=== PATIENT | female | born 1960 | race Caucasian/White ===

== ENCOUNTER 2018-09-24 05:52 | Emergency (ER) | payer OTHER ==
[~2018-09-24] VITALS: Ht 162.6 cm; Wt 76.2 kg
[~2018-09-24 05:52] MED LIST: AUGMENTIN 875-1 EACH PO; CARAFATE1 GM/10 ML PO; DOXAZOSIN MESYLA4 MG PO; FLEXERIL10 MG PO; HYDROCODONE-IBU1 TAB PO; METHOCARBAMOL750 MG PO; MIRALAX17 GM PO; NAPROSYN500 MG PO; NEXIUM40 MG PO; NORCO 10-325 T1 EACH PO; NORCO 10MG-325MG1 EA PO; SAVELLA50 MG PO; SENNA S TABLET1 EACH PO; SINGULAIR10 MG PO; SULFAMETHOXAZO1 EAC1 PO; ZOLPIDEM TARTRAT5 MG PO; ZYRTEC10 MG PO
--- OUTSIDE RECORDS SUMMARY | 2018-09-24 05:56 | XMS REPORT ---
Author Author [facility] Address Unknown Phone Unavailable Care Team Providers Care Flare Worker Name Role Phone Unavailable Unavailable Payers Payer Name Policy Type Policy Number Effective Date Expiration Date Problems This patient has no known problems. Allergies, Adverse Reactions, Alerts Allergy Name Allergy Type Status Severity Reaction(s) Onset Date Inactive Date Treating Clinician Comments morphine DA Active DC 2018-06-30 00:00:00 meperidine DA Active DC 2018-06-30 00:00:00 diphenhydramine DA Active DC 2018-06-30 00:00:00 No Known Allergies DA Active U 2015-10-17 00:00:00 Medications This patient has no known medications.
--- OUTSIDE RECORDS SUMMARY | 2018-09-24 05:56 | XMS REPORT | Clinical Summary ---
Author Author [employer] Organization [employer] Address Unknown Phone Unavailable Care Team Providers Care Home Demonstration Agent Name Role Phone Magno Yuan MD PCP Allergies Comments Active Allergy Reactions Severity Noted Date Morphine Medications End Date Status Medication Sig Dispensed Refills Start Date Active HYDROcodone-acetaminophen Take 1 tablet 0 (NORCO) 10-325 mg per by mouth 2 tablet (two) times a day. Active oxybutynin (DITROPAN) 5 Take 5 mg by 0 MG tablet mouth 2 (two) times a day. Active doxazosin (CARDURA) 8 MG Take 8 mg by 0 tablet mouth nightly. Active gabapentin (NEURONTIN) Take 600 mg 0 600 mg tablet by mouth 2 (two) times a day. Active triamterene-hydrochloroth Take 1 tablet 0 iazid (MAXZIDE) 75-50 mg by mouth per tablet daily. Active citalopram (CeleXA) 40 MG Take 40 mg by 0 tablet mouth daily. Active multivitamin (THERAGRAN) Take 1 tablet 0 tablet by mouth daily. Active MILK THISTLE ORAL Take 1 tablet 0 by mouth daily. Active CALCIUM ORAL Take 1 tablet 0 by mouth daily. Active docosahexanoic acid/epa Take 1 0 (FISH OIL ORAL) capsule by mouth daily. Active LECITHIN ORAL Take 1 tablet 0 by mouth daily. Active ferrous sulfate (IRON Take 1 tablet 0 ORAL) by mouth daily as needed (whenever she feels weak). Active docusate sodium (STOOL Take 1 0 SOFTENER ORAL) capsule by mouth daily as needed (for constipation) . Active esomeprazole (NexIUM) 20 Take 20 mg by 0 MG capsule mouth daily before breakfast. Active phentermine HCl Take 1 tablet 0 (PHENTERMINE ORAL) by mouth every morning. Active naproxen (NAPROSYN) 500 Take 500 mg 0 MG tablet by mouth 2 (two) times a day with meals. 11/28/2017 Discontinued methocarbamol (ROBAXIN) Take 750 mg 0 750 MG tablet by mouth 2 (two) times a day. 12/06/2017 Discontinued naproxen (NAPROSYN) 500 Take 500 mg 0 MG tablet by mouth 2 (two) times a day with meals. 12/06/2017 Discontinued tiZANidine (ZANAFLEX) 4 Take 4 mg by 0 MG tablet mouth 2 (two) times a day. 12/12/2017 Discontinued UNABLE TO FIND Take 1 0 capsule by mouth daily. Med Name: Bromelain Supplement 12/03/2017 methylPREDNISolone follow 21 tablet 0 (MEDROL DOSEPAK) 4 mg package 8 tablet directions 12/12/2017 Discontinued famotidine (PEPCID) 40 MG Take 1 tablet 20 tablet 0 tablet (40 mg total) 8 by mouth nightly as needed for heartburn for up to 30 days. 12/12/2017 Discontinued acetaminophen-codeine Take 1-2 60 tablet 0 (TYLENOL WITH CODEINE #3) tablets by 8 300-30 mg per tablet mouth every 4 (four) hours as needed (pain) for up to 30 days. 01/05/2018 cyclobenzaprine Take 1 tablet 40 tablet 0 (FLEXERIL) 5 mg tablet (5 mg total) 8 by mouth every 8 (eight) hours as needed for muscle spasms for up to 30 days. 05/26/2018 acetaminophen (TYLENOL Take 2 20 tablet 0 EXTRA STRENGTH) 500 MG tablets 8 tablet (1,000 mg total) by mouth every 6 (six) hours as needed for moderate pain for up to 10 days. 06/15/2018 albuterol (PROAIR Inhale 2 1 Inhaler 0 HFA,PROVENTIL puffs every 4 8 HFA,VENTOLIN HFA) 90 (four) hours mcg/actuation inhaler as needed for wheezing for up to 30 days. 05/21/2018 codeine-guaifenesin Take 5 mL by 118 mL 0 (GUAIFENESIN AC) 10-100 mouth 3 8 mg/5 mL liquid (three) times a day as needed for cough for up to 5 days. 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 11/19/2017 Anxiety 11/18/2017 Encounters Care Team Description Date Type Specialty Kayleen Smith MA 09/07/2018 Telephone Cardiothoracic Surgery Neal Joe MD Viral URI with cough (Primary Dx) 05/16/2018 Emergency Emergency Medicine Mal Mendez MD Muscle spasm (Primary Dx) 12/12/2017 Emergency Emergency Medicine Carlotta Pascual NP 12/05/2017 Anesthesia General Surgery Event Nii Pace MD ANTERIOR CERVICAL DISCECTOMY AND FUSION W/ ALLOGRAFT, AUTOGRAFT C3-C4 12/05/2017 Surgery General Surgery Nii Pace MD Cervical spinal stenosis; Acute cervical radiculopathy; Herniation of intervertebral disc of high cervical region 12/05/2017 [facility] Neurosurgery - Encounter 12/06/2017 Nii Pace MD Preop examination (Primary Dx) 12/01/2017 Pre-Admit Pre-Admission Testing Testing Appointment Roseann Anderson MD Dizziness (Primary Dx); Radiculopathy, unspecified spinal region 11/28/2017 Emergency Emergency Medicine Dada Hernandez MD Abbasi, Nadia, MD Patel, Amitkumar Natvarlal, MD Anxiety (Primary Dx); Fall, initial encounter; Herniated disc, cervical; Facial paresthesia 11/18/2017 [facility] General Internal Medicine - Encounter 11/19/2017 after 09/23/2017 Social History Date Tobacco Use Types Packs/Day Years Used Current Every Day Smoker Cigarettes 0.5 15 Smokeless Tobacco: Never Used Comments: last cigarette 12/05/17 Alcohol Use Drinks/Week oz/Week Comments Yes social Sex Assigned at Date Recorded Not on file Industry Job Start Date Occupation Not on file Not on file Not on file Travel End Travel History Travel Start No recent travel history available. Last Filed Vital Signs Time Taken Vital Sign Reading 05/16/2018 7:07 AM [facility] Blood Pressure 124/61 05/16/2018 7:07 AM [facility] Pulse 110 05/16/2018 2:20 AM [facility] Temperature 37.4 C (99.3 F) 05/16/2018 7:07 AM [facility] Respiratory Rate 22 05/16/2018 7:07 AM [facility] Oxygen Saturation 94% - Inhaled Oxygen - Concentration 05/16/2018 2:20 AM [facility] Weight 83 kg (183 lb) 12/12/2017 8:06 AM CDT Height 162.6 cm (5' 4") 05/16/2018 2:20 AM [facility] Body Mass Index 31.41 Plan of Treatment Health Maintenance Due Date Last Done Comments CERVICAL CANCER SCREENING 10/08/1980 BREAST CANCER SCREENING 10/08/2009 COLON CANCER SCREENING 10/08/2009 SHINGLES VACCINES (#1) 10/08/2009 INFLUENZA VACCINE 01/14/2019 Implants Device Identifier Shelf Expiration Date Model / Serial / Lot Implanted Type Area Manufactur er 06/14/2022 [id number] / [id number] / [id number] Bone Matriz Osteocel Pro Small - Human Anterior: Spine NUVASIVE [id number] - [id number] Tissue Cervical Implanted: Qty: 1 on 12/05/2017 by Implants Nii Pace MD [id number] / / Distraction Pin- 12mm - [id number] IPM Anterior: Spine NUVASIVE Implanted: Qty: 2 on 12/05/2017 by IMPLANT Cervical SPINE Nii Pace MD DEVICES [id number] / / Contour Spacer Small 5mm - IPM N/A: N/A NUVASIVE [id number] IMPLANT SPINE Implanted: Qty: 1 on 12/05/2017 by DEVICES Nii Pace MD [id number] / / Screw Spinal Fxd Slf-Tap 4x13mm Spinal N/A: N/A NUVASIVE [employer] - [id number] Implants Implanted: Qty: 2 on 12/05/2017 by Nii Pace MD [id number] / / Screw Spinal Ede Slf-Tap 4x13mm Spinal N/A: N/A NUVASIVE [employer] - [id number] Implants Implanted: Qty: 2 on 12/05/2017 by Nii Pace MD Procedures Comments Procedure Name Priority Date/Time Associated Diagnosis RESPIRATORY PATHOGEN Routine 05/16/2018 PANEL 5:11 AM [facility]ER INFLUENZA ANTIGEN TEST, Routine 05/16/2018 REFLEX NEGATIVE TO RPP 5:11 AM [facility]ER XR CHEST 2 VW STAT 05/16/2018 4:10 AM [facility] XR CERVICAL SPINE NEUTRAL STAT 12/12/2017 FLEXION AND EXTENSION 10:22 AM CDT ZZESTIMATED GFR STAT 12/12/2017 8:30 AM CDT BASIC METABOLIC PANEL STAT 12/12/2017 8:30 AM CDT HC COMPLETE BLD COUNT STAT 12/12/2017 W/AUTO DIFF 8:30 AM CDT SURGICAL PATHOLOGY Routine 12/05/2017 REQUEST 11:28 AM CDT OR FL < 1 HOUR Routine 12/05/2017 9:03 AM CDT NV AN ELECTIVE Routine 12/05/2017 ENDOTRACHEAL AIRWAY 8:20 AM CDT DISCECTOMY, CERVICAL, 12/05/2017 Cervical spinal stenosis WITH FUSION, ANTERIOR 7:15 AM CDT Acute cervical APPROACH radiculopathy Herniation of intervertebral disc of high cervical region Case Notes SUPINE POSITION, REGULAR BED-REVERS ED, C-ARM, DOUGHNUT HEADREST, HELIX - R ANTERIOR PLATE, PEEK SMALL CONTOURED, OSTEOCEL, POSSIBLE EXTENDED STAY Special Needs SUPINE POSITION, REGULAR BED-REVERS ED, C-ARM, DOUGHNUT HEADREST, HELIX - R ANTERIOR PLATE, PEEK SMALL CONTOURED, OSTEOCEL, POSSIBLE EXTENDED STAY ZZESTIMATED GFR Routine 12/01/2017 12:22 PM CDT BASIC METABOLIC PANEL Routine 12/01/2017 Preop examination 12:22 PM CDT CBC HEMOGRAM Routine 12/01/2017 Preop examination 12:22 PM CDT HEPATIC FUNCTION PANEL Routine 12/01/2017 Preop examination 12:22 PM CDT URINALYSIS SCREEN AND STAT 11/28/2017 MICROSCOPY, WITH REFLEX 10:38 AM CDT TO CULTURE GRAM STAIN STAT 11/28/2017 10:38 AM CDT URINE CULTURE STAT 11/28/2017 10:[address] HEAD WO CONTRAST STAT 11/28/2017 9:11 AM CDT LACTIC ACID LEVEL STAT 11/28/2017 8:30 AM CDT ZZESTIMATED GFR STAT 11/28/2017 8:30 AM CDT B NATRIURETIC PEPTIDE STAT 11/28/2017 8:30 AM CDT CREATINE KINASE, TOTAL STAT 11/28/2017 (CPK) 8:30 AM CDT TROPONIN STAT 11/28/2017 8:30 AM CDT LIPASE LEVEL STAT 11/28/2017 8:30 AM CDT AMYLASE LEVEL STAT 11/28/2017 8:30 AM CDT COMPREHENSIVE METABOLIC STAT 11/28/2017 PANEL 8:30 AM CDT PARTIAL THROMBOPLASTIN STAT 11/28/2017 TIME (PTT) 8:30 AM CDT PROTHROMBIN TIME WITH INR STAT 11/28/2017 8:30 AM CDT HC COMPLETE BLD COUNT STAT 11/28/2017 W/AUTO DIFF 8:30 AM CDT ECG 12-LEAD STAT 11/28/2017 7:42 AM CDT CBC WITH PLATELET AND Routine 11/19/2017 DIFFERENTIAL 10:02 AM CDT MRI LUMBAR SPINE WO STAT 11/19/2017 CONTRAST 8:10 AM CDT MRI THORACIC SPINE WO STAT 11/19/2017 CONTRAST 7:50 AM CDT MRI CERVICAL SPINE WO STAT 11/19/2017 CONTRAST 7:30 AM CDT ZZESTIMATED GFR Routine 11/19/2017 4:14 AM CDT COMPREHENSIVE METABOLIC Routine 11/19/2017 PANEL 4:14 AM CDT PARTIAL THROMBOPLASTIN STAT 11/19/2017 TIME (PTT) 1:30 AM CDT PROTHROMBIN TIME WITH INR STAT 11/19/2017 1:30 AM CDT STREP SCREEN CULTURE Routine 11/19/2017 1:30 AM CDT RESPIRATORY PATHOGEN Routine 11/19/2017 PANEL 1:30 AM CDT GROUP A STREP, RAPID Routine 11/19/2017 ANTIGEN 1:[address] HEAD WO CONTRAST STAT 11/19/2017 12:[address] CERVICAL SPINE WO STAT 11/19/2017 CONTRAST 12:13 AM CDT XR CHEST 1 VW PORTABLE STAT 11/18/2017 7:46 PM CDT ZZESTIMATED GFR STAT 11/18/2017 6:48 PM CDT COMPREHENSIVE METABOLIC STAT 11/18/2017 PANEL 6:48 PM CDT HC COMPLETE BLD COUNT STAT 11/18/2017 W/AUTO DIFF 6:45 PM CDT after 09/23/2017 Results * Respiratory pathogen panel (05/16/2018 5:11 AM [facility]) Only the most recent of 2 results within the time period is included. Respiratory pathogen Positive for [facility] panel Rhinovirus/Enterovirus [facility] Negative for all other pathogens tested: Negative for Adenovirus Negative for Coronavirus HKU1 Negative for Coronavirus NL63 Negative for Coronavirus 229E Negative for Coronavirus OC43 Negative for Human Metapneumovirus Negative for Influenza A Negative for Influenza A/H1 Negative for Influenza A/H3 Negative for Influenza A/H1-2009 Negative for Influenza B Negative for Parainfluenza Virus 1 Negative for Parainfluenza Virus 2 Negative for Parainfluenza Virus 3 Negative for Parainfluenza Virus 4 Negative for Respiratory Syncytial Virus Negative for Bordetella pertussis Negative for Chlamydophila pneumoniae Negative for Mycoplasma pneumoniae This real-time PCR assay detects the presence of nucleic acids (RNA or DNA) for the respiratory pathogens listed. A result of "Not-detected" does not exclude the possibility of the presence of one or more pathogens at concentrations less than the detectable limits of the assa (A) Comment: Specimen Information Specimen Source: Nares Specimen Site: Left Specimen Nares - Left Performing Organization Address [facility] Phone Number [facility] DEPARTMENT OF [address] [place] [address] PATHOLOGY AND GENOMIC MEDICINE [address] * Influenza antigen test, reflex negative to RPP (05/16/2018 5:11 AM [facility]) Influenza antigen Negative for Influenza A/B [facility] antigen. [facility] Comment: Specimen Information Specimen Source: Nares Specimen Site: Left Specimen Nares - Left Performing Organization Address [facility] Phone Number [facility] [place] [id number] [place] [address] [place] [address] PATHOLOGY AND GENOMIC MEDICINE [address] * XR Chest 2 Vw (05/16/2018 4:10 AM [facility]ER) Narrative Performed At XR CHEST 2 VW [facility] CLINICAL INDICATION:cough COMPARISON:11/18/2017. IMPRESSION: The lungs are clear of focal consolidation. The cardiomediastinal silhouette demonstrates a normal contour. There is no pleural effusion or gross pneumothorax. There are no acute osseous abnormalities. [facility]-[id number] Procedure Note Interface, Radiology Results Incoming - 05/16/2018 4:19 AM [facility] XR CHEST 2 VW CLINICAL INDICATION: cough COMPARISON: 11/18/2017. IMPRESSION: The lungs are clear of focal consolidation. The cardiomediastinal silhouette demonstrates a normal contour. There is no pleural effusion or gross pneumothorax. There are no acute osseous abnormalities. [facility]-[id number] Performing Organization Address [facility]/Zipcode Phone Number [facility] [address] [place] [address] * XR Cervical Spine Neutral Flexion And Extension (12/12/2017 10:22 AM CDT) Narrative Performed At EXAMINATION: XR CERVICAL SPINE NEUTRALFLEXION AND EXTENSION [facility] CLINICAL HISTORY: postop COMPARISON:11/18/2017. IMPRESSION: 5 views of the cervical spine including dynamic lateral radiographs are submitted. No fracture is identified. There is been interval ACDF at C3-4 with anterior plate and screws. No hardware failure or loosening is seen. There has been interval removal of anterior plate and screws at C4-5. Solid fusion is noted at C5-6 C6-7 and below is obscured on lateral images. There is mild grade 1 anterolisthesis of C2 relative C3 that changes approximately 1 mm between flexion and extension. [id number] Procedure Note Interface, Radiology Results Incoming - 12/12/2017 10:31 AM CDT EXAMINATION: XR CERVICAL SPINE NEUTRAL FLEXION AND EXTENSION CLINICAL HISTORY: postop COMPARISON: 11/18/2017. IMPRESSION: 5 views of the cervical spine including dynamic lateral radiographs are submitted. No fracture is identified. There is been interval ACDF at C3-4 with anterior plate and screws. No hardware failure or loosening is seen. There has been interval removal of anterior plate and screws at C4-5. Solid fusion is noted at C5-6 C6-7 and below is obscured on lateral images. There is mild grade 1 anterolisthesis of C2 relative C3 that changes approximately 1 mm between flexion and extension. [id number] Performing Organization Address City/State/Zipcode Phone Number [facility] [address] [place] [address] * Estimated GFR (12/12/2017 8:30 AM CDT) Only the most recent of 5 results within the time period is included. GFR Non Af Amer 51 (A) mL/min/1.73 m2 [facility] DEPARTMENT OF PATHOLOGY AND GENOMIC MEDICINE GFR Af Amer 62 mL/min/1.73 m2 [facility] DEPARTMENT OF Comment: PATHOLOGY AND Chronic kidney disease: <60 GENOMIC MEDICINE mL/min/1.73m2 Kidney failure: <15 mL/min/1.73m2 The estimated GFR is calculated from the IDMS-traceable Modification of Diet in Renal Disease Equation. The accuracy of the calculation is poor when the creatinine is normal. Calculated values >90 mL/min/1.73m2 are not reported. This equation has not been validated in children (<18 years), women, the elderly (>70 years), or ethnic groups other than Caucasians and Americans. Specimen Plasma specimen Performing Organization Address City/[facility] Centercode Phone Number [address] [address] PATHOLOGY AND GENOMIC MEDICINE * CBC with platelet and differential (12/12/2017 8:30 AM CDT) Only the most recent of 4 results within the time period is included. WBC 13.46 (H) 4.50 - 11.00 k/uL [facility] DEPARTMENT OF PATHOLOGY AND GENOMIC MEDICINE RBC 4.13 (L) 4.20 - 5.50 m/uL [facility] DEPARTMENT OF PATHOLOGY AND GENOMIC MEDICINE HGB 11.6 (L) 12.0 - 16.0 g/dL [facility] DEPARTMENT OF PATHOLOGY AND GENOMIC MEDICINE HCT 35.4 (L) 37.0 - 47.0 % [facility] DEPARTMENT OF PATHOLOGY AND GENOMIC MEDICINE MCV 85.7 82.0 - 100.0 fL [facility] DEPARTMENT OF PATHOLOGY AND GENOMIC MEDICINE MCH 28.1 27.0 - 34.0 pg [facility] DEPARTMENT OF PATHOLOGY AND GENOMIC MEDICINE MCHC 32.8 31.0 - 37.0 g/dL [facility] DEPARTMENT OF PATHOLOGY AND GENOMIC MEDICINE RDW - SD 41.0 37.0 - 55.0 fL [facility] DEPARTMENT OF PATHOLOGY AND GENOMIC MEDICINE MPV 9.7 8.8 - 13.2 fL [facility] DEPARTMENT OF PATHOLOGY AND GENOMIC MEDICINE Platelet count 311 150 - 400 k/uL [facility] DEPARTMENT OF PATHOLOGY AND GENOMIC MEDICINE Nucleated RBC 0.00 /100 WBC [facility] DEPARTMENT OF PATHOLOGY AND GENOMIC MEDICINE Neutrophils 75.2 (H) 39.0 - 69.0 % [facility] DEPARTMENT OF PATHOLOGY AND GENOMIC MEDICINE Lymphocytes 18.5 (L) 25.0 - 45.0 % [facility] DEPARTMENT OF PATHOLOGY AND GENOMIC MEDICINE Monocytes 4.8 0.0 - 10.0 % [facility] DEPARTMENT OF PATHOLOGY AND GENOMIC MEDICINE Eosinophils 0.4 0.0 - 5.0 % [facility] DEPARTMENT OF PATHOLOGY AND GENOMIC MEDICINE Basophils 0.4 0.0 - 1.0 % [facility] DEPARTMENT OF PATHOLOGY AND GENOMIC MEDICINE Immature granulocytes 0.7Comment: "Immature 0.0 - 1.0 % [facility] DEPARTMENT OF granulocytes" (promyelocytes, PATHOLOGY AND myelocytes, metamyelocytes) GENOMIC MEDICINE Specimen Blood Performing Organization Address City/[facility]/Zipcode Phone Number [address] [address] PATHOLOGY AND GENOMIC MEDICINE * Basic metabolic panel (12/12/2017 8:30 AM CDT) Only the most recent of 2 results within the time period is included. Sodium 138 135 - 148 mEq/L [facility] DEPARTMENT OF PATHOLOGY AND GENOMIC MEDICINE Potassium 4.2 3.5 - 5.0 mEq/L [facility] DEPARTMENT OF PATHOLOGY AND GENOMIC MEDICINE Chloride 97 (L) 98 - 112 mEq/L [facility] DEPARTMENT OF PATHOLOGY AND GENOMIC MEDICINE CO2 25 24 - 31 mEq/L [facility] DEPARTMENT OF PATHOLOGY AND GENOMIC MEDICINE Anion gap 16@ANIO (H) 7 - 15 mEq/L [facility] DEPARTMENT OF PATHOLOGY AND GENOMIC MEDICINE BUN 15 6 - 20 mg/dL [facility] DEPARTMENT OF PATHOLOGY AND GENOMIC MEDICINE Creatinine 1.1 (H) 0.5 - 0.9 mg/dL [facility] DEPARTMENT OF PATHOLOGY AND GENOMIC MEDICINE Glucose 116 (H) 65 - 99 mg/dL [facility] DEPARTMENT OF PATHOLOGY AND GENOMIC MEDICINE Calcium 9.1 8.3 - 10.2 mg/dL [facility] DEPARTMENT OF PATHOLOGY AND GENOMIC MEDICINE Specimen Plasma specimen Performing Organization Address City/[facility] [place] [address] PATHOLOGY AND GENOMIC MEDICINE * Surgical pathology request (12/05/2017 11:28 AM CDT) [facility] DEPARTMENT OF PATHOLOGY AND GENOMIC MEDICINE Surgical pathology report See link below for PDF Lab [facility] DEPARTMENT OF Report PATHOLOGY AND GENOMIC MEDICINE Result status This is Final Report to [facility] DEPARTMENT OF [id number] PATHOLOGY AND GENOMIC MEDICINE Performing Organization Address City/[facility] Centercode Phone Number [place] [phone] PATHOLOGY AND GENOMIC MEDICINE * OR FL < 1 Hour (12/05/2017 9:03 AM CDT) Narrative Performed At IMPRESSION: C-arm fluoroscopy under one hour was provided in the OR for the [facility] referring physician. A radiologist was not present during the procedure. Refer to the Operative report issued by the performing provider for procedure details. LOCATION: [facility] OR # 12 PROCEDURE: Ant cervical fusion START:0813am END:0903am FLUORO TIME: 3secs DOSE (mGy) :1.80 TECH: Varun Kerr Procedure Note Interface, Radiology Results Incoming - 12/05/2017 12:45 PM CDT IMPRESSION: C-arm fluoroscopy under one hour was provided in the OR for the referring physician. A radiologist was not present during the procedure. Refer to the Operative report issued by the performing provider for procedure details. LOCATION: [facility] OR # 12 PROCEDURE: Ant cervical fusion START: 0813am END: 0903am FLUORO TIME: 3secs DOSE (mGy) : 1.80 TECH: Varun Kerr Performing Organization Address City/State/Zipcode Phone Number [address] [place] [address] * ANESTHESIA INTUBATION (12/05/2017 8:20 AM CDT) Narrative Performed At Fernanda De La Cruz MD 12/05/20178:21 AM Airway Date/Time: 12/05/2017 7:25 AM Performed by: FERNANDA DE LA CRUZ Authorized by: MILTON BURRIS Location:OR Urgency:Elective Difficult Airway: No Anesthesiologist:MILTON BURRIS Resident/MANAGER GAME/AA:FERNANDA DE LA CRUZ Performed by: resident/MANAGER GAME/AA Preoxygenated with 100% O2: Yes Mask Ventilation:Easy mask Final Airway Type:Endotracheal airway Final Endotracheal Airway:ETT Cuffed: Yes Technique Used:Direct laryngoscopy Devices/Methods Used in Placement:Intubating stylet Insertion Site:Oral Blade type: Glidescope 3. Laryngoscope Blade/Videolaryngoscope Blade Size:3 ETT Size (mm):7.0 Cuff at minimum occlusion pressure: Yes Measured from:Lips ETT to Lips (cm):23 Placement Verified by: CO2 detection and direct visualization Laryngoscopic view:Grade I - full view of glottis Rapid Sequence Induction (RSI): No Modified RSI: No Number of Attempts at Approach:2 * CBC hemogram (12/01/2017 12:22 PM CDT) WBC 7.99 4.50 - 11.00 k/uL [facility] DEPARTMENT OF PATHOLOGY AND GENOMIC MEDICINE RBC 4.05 (L) 4.20 - 5.50 m/uL [facility] DEPARTMENT OF PATHOLOGY AND GENOMIC MEDICINE HGB 11.4 (L) 12.0 - 16.0 g/dL [facility] DEPARTMENT OF PATHOLOGY AND GENOMIC MEDICINE HCT 34.8 (L) 37.0 - 47.0 % [facility] DEPARTMENT OF PATHOLOGY AND GENOMIC MEDICINE MCV 85.9 82.0 - 100.0 fL [facility] DEPARTMENT OF PATHOLOGY AND GENOMIC MEDICINE MCH 28.1 27.0 - 34.0 pg [facility] DEPARTMENT OF PATHOLOGY AND GENOMIC MEDICINE MCHC 32.8 31.0 - 37.0 g/dL [facility] DEPARTMENT OF PATHOLOGY AND GENOMIC MEDICINE RDW - SD 40.9 37.0 - 55.0 fL [facility] DEPARTMENT OF PATHOLOGY AND GENOMIC MEDICINE MPV 10.2 8.8 - 13.2 fL [facility] DEPARTMENT OF PATHOLOGY AND GENOMIC MEDICINE Platelet count 301 150 - 400 k/uL [facility] DEPARTMENT OF PATHOLOGY AND GENOMIC MEDICINE Nucleated RBC 0.00 /100 WBC [facility] DEPARTMENT OF PATHOLOGY AND GENOMIC MEDICINE Specimen Blood Performing Organization Address City/[facility] Centercode Phone Number [address] [address] PATHOLOGY AND GENOMIC MEDICINE * Hepatic function panel (12/01/2017 12:22 PM CDT) Albumin 3.6 3.5 - 5.0 g/dL [facility] DEPARTMENT OF PATHOLOGY AND GENOMIC MEDICINE Total bilirubin <0.2 0.0 - 1.2 mg/dL [facility] DEPARTMENT OF PATHOLOGY AND GENOMIC MEDICINE Bilirubin direct <0.2 0.0 - 0.3 mg/dL [facility] DEPARTMENT OF PATHOLOGY AND GENOMIC MEDICINE Alkaline phosphatase 61 35 - 104 U/L [facility] DEPARTMENT OF PATHOLOGY AND GENOMIC MEDICINE Protein 7.0 6.3 - 8.3 g/dL [facility] DEPARTMENT OF Comment: PATHOLOGY AND GENOMIC MEDICINE 4.6-7.0 g/dL 1 week 4.4-7.6 g/dL 7 months-1year 5.1-7.3 g/dL 1-2 years5.6-7 .5 g/dL >3 years6.0-8 .0 g/dL 18-150 6.3-8.3 g/dL ALT 29 5 - 50 U/L [facility] DEPARTMENT OF PATHOLOGY AND GENOMIC MEDICINE AST 22 10 - 35 U/L [facility] DEPARTMENT OF PATHOLOGY AND GENOMIC MEDICINE Specimen Plasma specimen Performing Organization Address City/[facility] Services/Zipcode Phone Number [address] [address] PATHOLOGY AND GENOMIC MEDICINE * Urinalysis screen and microscopy, with reflex to culture (11/28/2017 10:38 AM CDT) Specimen site Clean catch [facility] DEPARTMENT OF PATHOLOGY AND GENOMIC MEDICINE Color, UA Yellow [facility] DEPARTMENT OF PATHOLOGY AND GENOMIC MEDICINE Appearance, UA Hazy [facility] DEPARTMENT OF PATHOLOGY AND GENOMIC MEDICINE Specific gravity, UA 1.021 1.001 - 1.035 [facility] DEPARTMENT OF PATHOLOGY AND GENOMIC MEDICINE pH, UA 5.0 5.0 - 8.5 [facility] DEPARTMENT OF PATHOLOGY AND GENOMIC MEDICINE Protein, UA 1+ (A) Negative [facility] DEPARTMENT OF PATHOLOGY AND GENOMIC MEDICINE Glucose, UA Negative Negative [facility] DEPARTMENT OF PATHOLOGY AND GENOMIC MEDICINE Ketones, UA Negative Negative [facility] DEPARTMENT OF PATHOLOGY AND GENOMIC MEDICINE Bilirubin, UA Negative Negative [facility] DEPARTMENT OF PATHOLOGY AND GENOMIC MEDICINE Blood, UA Small (A) Negative [facility] DEPARTMENT OF PATHOLOGY AND GENOMIC MEDICINE Nitrite, UA Negative Negative [facility] DEPARTMENT OF PATHOLOGY AND GENOMIC MEDICINE Urobilinogen, UA <2.0 <2.0 [facility] DEPARTMENT OF PATHOLOGY AND GENOMIC MEDICINE Leukocyte esterase, UA Moderate (A) Negative [facility] DEPARTMENT OF PATHOLOGY AND GENOMIC MEDICINE Epithelial cells, UA >20 /HPF [facility] DEPARTMENT OF PATHOLOGY AND GENOMIC MEDICINE WBC, UA 16 (H) 0 - 4 /HPF [facility] DEPARTMENT OF PATHOLOGY AND GENOMIC MEDICINE RBC, UA 29 (H) 0 - 5 /HPF [facility] DEPARTMENT OF PATHOLOGY AND GENOMIC MEDICINE Bacteria, UA Few None seen [facility] DEPARTMENT OF PATHOLOGY AND GENOMIC MEDICINE Yeast, UA None seen [facility] DEPARTMENT OF PATHOLOGY AND GENOMIC MEDICINE Yeast with pseudohyphae, None seen [facility] DEPARTMENT OF UA PATHOLOGY AND GENOMIC MEDICINE Hyaline casts, UA >20 (A) /LPF [facility] DEPARTMENT OF PATHOLOGY AND GENOMIC MEDICINE Specimen Urine Narrative Performed At [facility] on per nurse ronn brunson11/28/201708:46 ?Specimen must be [facility] DEPARTMENT OF received in the laboratory within 2 hours of PATHOLOGY AND ?collection. GENOMIC MEDICINE ?Specimen Source->Urine Performing Organization Address City/[facility]/Zipcode Phone Number [facility] DEPARTMENT OF [address] [place] [address] PATHOLOGY AND GENOMIC MEDICINE * Gram stain (11/28/2017 10:38 AM CDT) Gram stain result Rare WBC's [facility] DEPARTMENT OF Many Gram variable rods PATHOLOGY AND Comment: GENOMIC MEDICINE Specimen Information Specimen Source: Urine Specimen Site: Clean catch Specimen Urine Narrative Performed At [facility] on per nurse ronn brunson11/28/201708:46 ?Specimen must be [facility] DEPARTMENT OF received in the laboratory within 2 hours of PATHOLOGY AND ?collection. GENOMIC MEDICINE ?Specimen Source->Urine Performing Organization Address City/State/Zipcode Phone Number [facility] DEPARTMENT [address] [address] PATHOLOGY AND GENOMIC MEDICINE * Urine culture (11/28/2017 10:38 AM CDT) Urine culture isolate Gram negative rods [facility] DEPARTMENT OF <10-1 cfu/ml PATHOLOGY AND (A) GENOMIC MEDICINE Comment: Specimen Information Specimen Source: Urine Specimen Site: Clean catch Urine culture isolate Mixed Gram positive bernabe [facility] DEPARTMENT OF >10-5 cfu/ml PATHOLOGY AND (A) GENOMIC MEDICINE Specimen Urine Narrative Performed At [facility] on per nurse ronn brunson11/28/201708:46 ?Specimen must be [facility] DEPARTMENT OF received in the laboratory within 2 hours of PATHOLOGY AND ?collection. GENOMIC MEDICINE ?Specimen Source->Urine Performing Organization Address City/[facility]/Zipcode Phone Number [facility] DEPARTMENT OF [address] [place] [address] PATHOLOGY AND GENOMIC MEDICINE * CT Head Wo Contrast (11/28/2017 9:11 AM CDT) Only the most recent of 2 results within the time period is included. Narrative Performed At EXAMINATION:CT HEAD WO CONTRAST [facility] COMPARISON: and November [address] CLINICAL HISTORY:headache TECHNIQUE: Up to date CT equipment and radiation dose reduction technique were utilized. FINDINGS:There are no areas of abnormal density. There is no mass or extra-axial fluid collection. The ventricles and sulci are normal in size shape and position. The sinuses and mastoids are clear. IMPRESSION:Normal study. [facility]-[id number] Procedure Note [facility], Radiology Results Incoming - 11/28/2017 9:22 AM CDT EXAMINATION: CT HEAD WO CONTRAST COMPARISON: and November [address] CLINICAL HISTORY: headache TECHNIQUE: Up to date CT equipment and radiation dose reduction technique were utilized. FINDINGS: There are no areas of abnormal density. There is no mass or extra- axial fluid collection. The ventricles and sulci are normal in size shape and position. The sinuses and mastoids are clear. IMPRESSION: Normal study. [facility]-[id number] Performing Organization Address City/State/Zipcode Phone Number [facility] [address] [place] [address] * Troponin (11/28/2017 8:30 AM CDT) Troponin <0.30 0.00 - 0.30 ng/mL [facility] DEPARTMENT OF Comment: PATHOLOGY AND 0.30 - 1.49 GENOMIC MEDICINE ng/mlMay indicate increased risk of acute coronary syndrome. >=1.5 ng/ml Consistent with acute myocardial infarction. The diagnostic value of a single normal or non-diagnostic result is questionable.Serial samples at 2-6 hour intervals are required to rule out acute myocardial injury. Specimen Plasma specimen Narrative Performed At add on per nurse ronn brunson11/28/201708:46 ?Specimen must be [facility] DEPARTMENT OF received in the laboratory within 2 hours of PATHOLOGY AND ?collection. GENOMIC MEDICINE ?Specimen Source->Urine Performing Organization Address City/[facility] Cent[facility] Phone Number [address] [address] PATHOLOGY AND GENOMIC MEDICINE * Partial thromboplastin time, activated (11/28/2017 8:30 AM CDT) Only the most recent of 2 results within the time period is included. PTT 26.9 23.0 - 36.0 sec [facility] DEPARTMENT OF Comment: PATHOLOGY AND PTT therapeutic range for [facility] unfractionated heparin is 61.0-112.0 seconds which corresponds to Anti-Xa 0.3-0.7 U/ml. Specimen Blood Narrative Performed At add on per nurse ronn brunson11/28/201708:46 ?Specimen must be [facility] DEPARTMENT OF received in the laboratory within 2 hours of PATHOLOGY AND ?collection. GENOMIC MEDICINE ?Specimen Source->Urine Performing Organization Address City/[facility] Centercode Phone Number [address] [address] PATHOLOGY AND [employer] MEDICINE * Prothrombin time with INR (11/28/2017 8:30 AM CDT) Only the most recent of 2 results within the time period is included. Prothrombin time 12.6 12.0 - 15.0 sec [facility] DEPARTMENT OF PATHOLOGY AND GENOMIC MEDICINE INR 0.9 [facility] DEPARTMENT OF Comment: PATHOLOGY AND The International Normalized GENOMIC MEDICINE Ratio (INR) is a therapeutic monitoring tool for patients who are stable on oral anticoagulant therapy. An INR of 2.0-3.0 is suggested for deep vein thrombosis/pulmonary embolism. Specimen Blood Narrative Performed At add on per nurse ronn brunson11/28/201708:46 ?Specimen must be [facility] DEPARTMENT OF received in the laboratory within 2 hours of PATHOLOGY AND ?collection. GENOMIC MEDICINE ?Specimen Source->Urine Performing Organization Address City/[facility]/Zipcode Phone Number [facility] [place] [address] PATHOLOGY AND GENOMIC MEDICINE * B natriuretic peptide (11/28/2017 8:30 AM CDT) BNP 13 0 - 100 pg/mL [facility] DEPARTMENT OF PATHOLOGY AND GENOMIC MEDICINE Specimen Blood Narrative Performed At add on per nurse ronn brunson11/28/201708:46 ?Specimen must be [facility] DEPARTMENT OF received in the laboratory within 2 hours of PATHOLOGY AND ?collection. GENOMIC MEDICINE ?Specimen Source->Urine Performing Organization Address City/[facility]/[place] [address] PATHOLOGY AND GENOMIC MEDICINE * Lipase level (11/28/2017 8:30 AM CDT) Lipase 29 13 - 60 U/L [facility] DEPARTMENT OF PATHOLOGY AND GENOMIC MEDICINE Specimen Plasma specimen Narrative Performed At add on per nurse ronn brunson11/28/201708:46 ?Specimen must be [facility] DEPARTMENT OF received in the laboratory within 2 hours of PATHOLOGY AND ?collection. GENOMIC MEDICINE ?Specimen Source->Urine Performing Organization Address City/[facility]/[place] [address] PATHOLOGY AND GENOMIC MEDICINE * Lactic acid level (11/28/2017 8:30 AM CDT) Lactic acid 1.8 0.5 - 2.2 mmol/L [facility] DEPARTMENT OF PATHOLOGY AND GENOMIC MEDICINE Specimen Plasma specimen Narrative Performed At add on per nurse ronn brunson11/28/201708:46 ?Specimen must be [facility] DEPARTMENT OF received in the laboratory within 2 hours of PATHOLOGY AND ?collection. GENOMIC MEDICINE ?Specimen Source->Urine Performing Organization Address City/[facility]/[place] [address] PATHOLOGY AND GENOMIC MEDICINE * Creatine kinase, total (CPK) (11/28/2017 8:30 AM CDT) Creatine kinase 56 26 - 192 U/L [facility] DEPARTMENT OF PATHOLOGY AND GENOMIC MEDICINE Specimen Plasma specimen Narrative Performed At add on per nurse ronn brunson11/28/201708:46 ?Specimen must be [facility] DEPARTMENT OF received in the laboratory within 2 hours of PATHOLOGY AND ?collection. GENOMIC MEDICINE ?Specimen Source->Urine Performing Organization Address City/State/Zipcode Phone Number [address] [address] PATHOLOGY AND GENOMIC MEDICINE * Amylase level (11/28/2017 8:30 AM CDT) Amylase 42 28 - 100 U/L [facility] DEPARTMENT OF PATHOLOGY AND GENOMIC MEDICINE Specimen Plasma specimen Narrative Performed At add on per nurse ronn brunson11/28/201708:46 ?Specimen must be [facility] DEPARTMENT OF received in the laboratory within 2 hours of PATHOLOGY AND ?collection. GENOMIC MEDICINE ?Specimen Source->Urine Performing Organization Address City/State/Zipcode Phone Number [address] [address] PATHOLOGY AND GENOMIC MEDICINE * Comprehensive metabolic panel (11/28/2017 8:30 AM CDT) Only the most recent of 3 results within the time period is included. Sodium 137 135 - 148 mEq/L [facility] DEPARTMENT OF PATHOLOGY AND GENOMIC MEDICINE Potassium 3.9 3.5 - 5.0 mEq/L [facility] DEPARTMENT OF PATHOLOGY AND GENOMIC MEDICINE Chloride 97 (L) 98 - 112 mEq/L [facility] DEPARTMENT OF PATHOLOGY AND GENOMIC MEDICINE CO2 28 24 - 31 mEq/L [facility] DEPARTMENT OF PATHOLOGY AND GENOMIC MEDICINE Anion gap 12@ANIO 7 - 15 mEq/L [facility] DEPARTMENT OF PATHOLOGY AND GENOMIC MEDICINE BUN 21 (H) 6 - 20 mg/dL [facility] DEPARTMENT OF PATHOLOGY AND GENOMIC MEDICINE Creatinine 1.4 (H) 0.5 - 0.9 mg/dL [facility] DEPARTMENT OF PATHOLOGY AND GENOMIC MEDICINE Glucose 133 (H) 65 - 99 mg/dL [facility] DEPARTMENT OF PATHOLOGY AND GENOMIC MEDICINE Calcium 9.3 8.3 - 10.2 mg/dL [facility] DEPARTMENT OF PATHOLOGY AND GENOMIC MEDICINE Protein 6.9 6.3 - 8.3 g/dL [facility] DEPARTMENT OF Comment: PATHOLOGY AND [place] GENOMIC MEDICINE 4.6-7.0 g/dL 1 week 4.4-7.6 g/dL 7 months-1year 5.1-7.3 g/dL 1-2 years5.6-7 .5 g/dL >3 years6.0-8 .0 g/dL 18-150 6.3-8.3 g/dL Albumin 3.5 3.5 - 5.0 g/dL [facility] DEPARTMENT OF PATHOLOGY AND GENOMIC MEDICINE A/G ratio 1.0 0.7 - 3.8 [facility] DEPARTMENT OF PATHOLOGY AND GENOMIC MEDICINE Alkaline phosphatase 67 35 - 104 U/L [facility] DEPARTMENT OF PATHOLOGY AND GENOMIC MEDICINE AST 22 10 - 35 U/L [facility] DEPARTMENT OF PATHOLOGY AND GENOMIC MEDICINE ALT 27 5 - 50 U/L [facility] DEPARTMENT OF PATHOLOGY AND GENOMIC MEDICINE Total bilirubin <0.2 0.0 - 1.2 mg/dL [facility] DEPARTMENT OF PATHOLOGY AND GENOMIC MEDICINE Specimen Plasma specimen Narrative Performed At [facility] on per nurse ronn brunson11/28/201708:46 ?Specimen must be [facility] DEPARTMENT OF received in the laboratory within 2 hours of PATHOLOGY AND ?collection. GENOMIC MEDICINE ?Specimen Source->Urine Performing Organization Address City/[facility]ercode Phone Number [facility] DEPARTMENT OF [address] [place] [address] PATHOLOGY AND GENOMIC MEDICINE * ECG 12 lead (11/28/2017 7:42 AM CDT) Ventricular rate 85 [facility] MUSE Atrial rate 85 [facility] MUSE NV interval 174 [facility] MUSE QRSD interval 82 [facility] MUSE QT interval 376 [facility] MUSE QTC interval 447 [facility] MUSE P axis 1 49 [facility] MUSE QRS axis 1 55 [facility] MUSE T wave axis 37 [facility] MUSE EKG impression Normal sinus rhythm-Normal [facility] MUSE ECG-In automated comparison with ECG of 03-SEP-2014 19:32,-No significant change was found-Electronically Signed By Darling CHILD, [facility] ([id number]) on 11/28/2017 10:39:04 PM Performing Organization Address [facility] Centercofl Phone Number [facility] [address] [place] [address] * MRI Lumbar Spine Wo Contrast (11/19/2017 8:10 AM CDT) Narrative Performed At Study:MRI LUMBAR SPINE WO CONTRAST [facility] History:back pain COMPARISON: None TECHNIQUE: Sagittal T1, T2, STIR, axial T1, T2 MR images of the lumbar spine obtained without IV contrast. FINDINGS: The last functional disc is presumed L5/S1 and the L5 level is marked on the sagittal T2 image number 5. The lumbar lordosis is maintained. There are no subluxations. Vertebral body is within normal limits. No acute marrow signal abnormality is present. L1-2: Normal. L2-3: Normal. L3-4: Moderate disc height loss with a broad shallow disc protrusion. Canal stenosis is mild. Mild right foraminal stenosis. The left foramen is patent. L4-5: Moderate disc loss with a broad disc protrusion asymmetric to the left. There is mild canal stenosis but with severe stenosis of the left lateral recess. There is some ligamentum flavum thickening and some degree of facet arthrosis. There is severe left and mild right foraminal stenosis. L5/S1: Disc heights maintained with a broad shallow disc protrusion. No canal stenosis. Facet arthrosis present no foraminal stenosis. The spinal cord is normal in signal and volume. The conus terminates at the level of L1, normal. Remainder of the cauda equina is otherwise unremarkable. Paravertebral soft tissues are unremarkable. IMPRESSION: Broad disc protrusion at L4-5 asymmetric to the left narrowing the left lateral recess. Facet arthrosis also present at this level. These changes result in narrowing of the left lateral recess and significant stenosis of the left foramen which could affect the left L5 and exiting L4 nerve roots, respectively. Broad shallow disc protrusion at L3-4 with only mild canal stenosis. [id number] Procedure Note Hm Interface, Radiology Results Incoming - 11/19/2017 8:30 AM CDT Study:MRI LUMBAR SPINE WO CONTRAST History:back pain COMPARISON: None TECHNIQUE: Sagittal T1, T2, STIR, axial T1, T2 MR images of the lumbar spine obtained without IV contrast. FINDINGS: The last functional disc is presumed L5/S1 and the L5 level is marked on the sagittal T2 image number 5. The lumbar lordosis is maintained. There are no subluxations. Vertebral body is within normal limits. No acute marrow signal abnormality is present. L1-2: Normal. L2-3: Normal. L3-4: Moderate disc height loss with a broad shallow disc protrusion. Canal stenosis is mild. Mild right foraminal stenosis. The left foramen is patent. L4-5: Moderate disc loss with a broad disc protrusion asymmetric to the left. There is mild canal stenosis but with severe stenosis of the left lateral recess. There is some ligamentum flavum thickening and some degree of facet arthrosis. There is severe left and mild right foraminal stenosis. L5/S1: Disc heights maintained with a broad shallow disc protrusion. No canal stenosis. Facet arthrosis present no foraminal stenosis. The spinal cord is normal in signal and volume. The conus terminates at the level of L1, normal. Remainder of the cauda equina is otherwise unremarkable. Paravertebral soft tissues are unremarkable. IMPRESSION: Broad disc protrusion at L4-5 asymmetric to the left narrowing the left lateral recess. Facet arthrosis also present at this level. These changes result in narrowing of the left lateral recess and significant stenosis of the left foramen which could affect the left L5 and exiting L4 nerve roots, respectively. Broad shallow disc protrusion at L3-4 with only mild canal stenosis. [id number] Performing Organization Address [facility] Centercofl Phone Number [facility] [address] [place] [address] * MRI Thoracic Spine Wo Contrast (11/19/2017 7:50 AM CDT) Narrative Performed At EXAMINATION:MRI THORACIC SPINE WO CONTRAST [facility] CLINICAL HISTORY:back pain COMPARISON:None. TECHNIQUE: Multiplanar MRI imagingwithout IV Gadolinium was performed. FINDINGS: There is normal thoracic kyphosis and alignment. Vertebral bodies are preserved. Bone marrow is unremarkable with no evidence of acute fracture or suspicious marrow-replacing lesion. Intervertebral disc spaces are relatively preserved.The spinal cord is normal in signal and configuration. There is no significant posterior disc pathology, spinal canal or neural foraminal stenosis. Visualized paraspinal soft tissues are unremarkable. IMPRESSION: Unremarkable thoracic spinal MRI with no significant spinal canal or neural foraminal stenosis. [facility]-[id number] Procedure Note Interface, Radiology Results Incoming - 11/19/2017 8:05 AM CDT EXAMINATION: MRI THORACIC SPINE WO CONTRAST CLINICAL HISTORY: back pain COMPARISON: None. TECHNIQUE: Multiplanar MRI imaging without IV Gadolinium was performed. FINDINGS: There is normal thoracic kyphosis and alignment. Vertebral bodies are preserved. Bone marrow is unremarkable with no evidence of acute fracture or suspicious marrow-replacing lesion. Intervertebral disc spaces are relatively preserved. The spinal cord is normal in signal and configuration. There is no significant posterior disc pathology, spinal canal or neural foraminal stenosis. Visualized paraspinal soft tissues are unremarkable. IMPRESSION: Unremarkable thoracic spinal MRI with no significant spinal canal or neural foraminal stenosis. [facility]-[id number] Performing Organization Address [facility] Centercofl Phone Number [facility] [address] [place] [address] * MRI Cervical Spine Wo Contrast (11/19/2017 7:30 AM CDT) Narrative Performed At EXAMINATION:MRI CERVICAL SPINE WO CONTRAST [facility] CLINICAL HISTORY:fallneck paincritical stenosis c3-c4 COMPARISON:CT of the cervical spine dated November 18, 2017 TECHNIQUE: Multiplanar MRI imaging without IV Gadolinium was performed. FINDINGS: There is anterior interbody fusion with plate and screws between C4-C5 level with intervertebral disc graft. There is a bony ankylosis and fusion of the intervertebral discs at C5-C6 and C6-C7 levels. The vertebral bodies are preserved. Bone marrow is unremarkable with no evidence of acute fracture or suspicious marrow-replacing lesion.. .There is normal flow signal in both cervical vertebral arteries. C2-3: Bilateral facet arthropathy. No canal stenosis. No foraminal narrowing. C3-4: Superjacent segment spondylotic disease with significant disc space narrowing and posterior diffuse disc ossified complex and ligamentous thickening resulting in severe cervical canal stenosis with flattening of the cervical spine cord contour. The AP diameter of the canal measures about 5 mm. There is subtle abnormal increased T2 signal in the cord suggestive of cord compressive myelopathy. There is a spondylotic moderate bilateral foraminal narrowing. C4-5: Anterior fusion. There is no canal stenosis or foramina narrowing. C5-6: No canal stenosis or foramina narrowing. C6-7: No canal stenosis or foramina narrowing. C7-T1: No canal stenosis or foramina narrowing. Visualized neck soft tissues are unremarkable. IMPRESSION: Cervical spine fusion as described extending from C4 to C7 level with the evidence of superjacent segment significant spondylotic disc and facet changes at the C3-C4 level where there is severe cervical canal stenosis and the compression of the cord with the faint abnormal increased T2 signal in the cord suggestive of compressive myelopathy. Clinical correlation is recommended. [facility]-[id number] Procedure Note [facility], Radiology Results - 11/19/2017 7:59 AM CDT EXAMINATION: MRI CERVICAL SPINE WO CONTRAST CLINICAL HISTORY: fall neck pain critical stenosis c3-c4 COMPARISON: CT of the cervical spine dated November 18, 2017 TECHNIQUE: Multiplanar MRI imaging without IV Gadolinium was performed. FINDINGS: There is anterior interbody fusion with plate and screws between C4-C5 level with intervertebral disc graft. There is a bony ankylosis and fusion of the intervertebral discs at C5-C6 and C6-C7 levels. The vertebral bodies are preserved. Bone marrow is unremarkable with no evidence of acute fracture or suspicious marrow-replacing lesion. . . There is normal flow signal in both cervical vertebral arteries. C2-3: Bilateral facet arthropathy. No canal stenosis. No foraminal narrowing. C3-4: Superjacent segment spondylotic disease with significant disc space narrowing and posterior diffuse disc ossified complex and ligamentous thickening resulting in severe cervical canal stenosis with flattening of the cervical spine cord contour. The AP diameter of the canal measures about 5 mm. There is subtle abnormal increased T2 signal in the cord suggestive of cord compressive myelopathy. There is a spondylotic moderate bilateral foraminal narrowing. C4-5: Anterior fusion. There is no canal stenosis or foramina narrowing. C5-6: No canal stenosis or foramina narrowing. C6-7: No canal stenosis or foramina narrowing. C7-T1: No canal stenosis or foramina narrowing. Visualized neck soft tissues are unremarkable. IMPRESSION: Cervical spine fusion as described extending from C4 to C7 level with the evidence of superjacent segment significant spondylotic disc and facet changes at the C3-C4 level where there is severe cervical canal stenosis and the compression of the cord with the faint abnormal increased T2 signal in the cord suggestive of compressive myelopathy. Clinical correlation is recommended. [facility]-[id number] Performing Organization Address [facility] Centercode Phone Number [facility] [address] [place] [address] * Group A strep, rapid antigen (11/19/2017 1:30 AM CDT) Group A strep, rapid Negative for Group A [facility] [facility] DE[facility] OF antigen result Streptococcus antigen. PATHOLOGY AND Comment: GENOMIC MEDICINE Specimen Information Specimen Source: Throat Specimen Site: Not otherwise specified Specimen Throat - Not otherwise specified Performing Organization Address [facility] Phone Number [facility] [place] [address] PATHOLOGY AND GENOMIC MEDICINE * Strep screen culture (11/19/2017 1:30 AM CDT) Strep screen culture No beta hemolytic Streptococci [facility] DEPARTMENT OF isolate isolated PATHOLOGY AND Comment: GENOMIC MEDICINE Specimen Information Specimen Source: Throat Specimen Site: Not otherwise specified Specimen Throat - Not otherwise specified Performing Organization Address [facility]ode Phone Number [facility] [place] [address] PATHOLOGY AND GENOMIC MEDICINE * CT Cervical Spine Wo Contrast (11/19/2017 12:13 AM CDT) Narrative Performed At EXAMINATION: CT CERVICAL SPINE WO CONTRAST [facility] CLINICAL HISTORY: traumac1-2 tenderness COMPARISON:None TECHNIQUE: Noncontrast enhanced imaging through the cervical spine was performed with coronal and sagittal reconstructed images. CT scans are performed using radiation dose reduction techniques (iterative reconstruction and/or automated exposure control). Technical factors are evaluated and adjusted to ensure appropriate moderation of exposure. Automated dose management technology is applied to adjust radiation exposure while achieving a diagnostic quality image. FINDINGS: No acute fractures or acute subluxation. Surgical hardware related to C4-C5 ACDF, which appears intact. There also appears to be fusion from C5 through C7. Degenerative changes: There is relative straightening of the usual cervical curvature. Advanced degenerative change is present at C3-C4 with associated disc osteophyte complex resulting in moderate central stenosis. There is 1 to 2 mm anterolisthesis of C2 on 3. Multilevel facet and uncovertebral arthropathy, contributing to foraminal stenosis which is moderate to severe on the right at C3-C4, severe at right C7-T1, and otherwise mild. IMPRESSION: No acute osseous abnormality of the cervical spine. [facility]-[id number] Procedure Note Hm Interface, Radiology Results Incoming - 11/19/2017 12:24 AM CDT EXAMINATION: CT CERVICAL SPINE WO CONTRAST CLINICAL HISTORY: trauma c1-2 tenderness COMPARISON: None TECHNIQUE: Noncontrast enhanced imaging through the cervical spine was performed with coronal and sagittal reconstructed images. CT scans are performed using radiation dose reduction techniques (iterative reconstruction and/or automated exposure control). Technical factors are evaluated and adjusted to ensure appropriate moderation of exposure. Automated dose management technology is applied to adjust radiation exposure while achieving a diagnostic quality image. FINDINGS: No acute fractures or acute subluxation. Surgical hardware related to C4-C5 ACDF, which appears intact. There also appears to be fusion from C5 through C7. Degenerative changes: There is relative straightening of the usual cervical curvature. Advanced degenerative change is present at C3-C4 with associated disc osteophyte complex resulting in moderate central stenosis. There is 1 to 2 mm anterolisthesis of C2 on 3. Multilevel facet and uncovertebral arthropathy, contributing to foraminal stenosis which is moderate to severe on the right at C3-C4, severe at right C7- T1, and otherwise mild. IMPRESSION: No acute osseous abnormality of the cervical spine. [facility]-[id number] Performing Organization Address City/State/Zipcode Phone Number [facility] [address] [place] [address] * XR Chest 1 Vw Portable (11/18/2017 7:46 PM CDT) Narrative Performed At Study:XR CHEST 1 VW PORTABLE [facility] History: Cough COMPARISON: September 03, 2014 IMPRESSION: A single view of the chest. There is no focal consolidation, pleural effusion or pneumothorax.Cardiac silhouette is normal.Visualized osseous structures arestable. [facility]-[id number] Procedure Note Hm Interface, Radiology Results Incoming - 11/18/2017 7:52 PM CDT Study:XR CHEST 1 VW PORTABLE History: Cough COMPARISON: September 03, 2014 IMPRESSION: A single view of the chest. There is no focal consolidation, pleural effusion or pneumothorax. Cardiac silhouette is normal. Visualized osseous structures are stable. [facility]-[id number] Performing Organization Address City/State/Zipcode Phone Number [facility] [address] [place] [address] after 09/23/2017 Insurance Payer Benefit Subscriber ID Type Phone Address Plan / Group AETNA AETNA xxxxxxxxx HMO HMO,POS,EP O, MC/EC Advance Directives Patient has advance care planning documents on file. For more information, stefani nevarez contact: Palomo Mejia [address] [place] [address]
[2018-09-24] MEDS ORDERED: SODIUM CHLORIDE 0.9% 1000ML 1,000 ML IV STA (06:13)
[2018-09-24] MEDS ORDERED: FAMOTIDINE 20 MG/2 ML VIAL IV NR (06:15)
[2018-09-24] MEDS ORDERED: ONDANSETRON HCL INJ 2MG/ML 2ML 2 MG/ML VIAL IV NR (06:15)
[2018-09-24 06:43] LABS: BASOPHILS # (AUTO) 0.1 (0.0-0.1); BASOPHILS % 0.7 % (0.0-1.0); EOSINOPHILS # (AUTO) 0.2 (0.0-0.4); EOSINOPHILS % 1.8 % (0.0-6.0); HEMATOCRIT 45.5 % (34.2-44.1); LYMPHOCYTES # (AUTO) 4.7 (1.0-3.2); LYMPHOCYTES % 37.7 % (18.0-39.1); MEAN CORPUSCULAR HEMOGLOBIN 27.6 pg (28-32); MEAN CORPUSCULAR HGB CONC 33.4 g/dL (31-35); MEAN CORPUSCULAR VOLUME 82.7 fL (81-99); MONOCYTES # (AUTO) 0.7 (0.2-0.8); MONOCYTES % 5.9 % (4.4-11.3); NEUTROPHILS # (AUTO) 6.7 (2.1-6.9); NEUTROPHILS % 53.6 % (38.7-80.0); PLATELET COUNT 409 x10e3/uL (140-360); RED CELL DISTRIBUTION WIDTH 12.5 % (11.7-14.4)
[2018-09-24 06:45] LABS: HEMOGLOBIN 15.2 g/dL (12.0-16.0)
[2018-09-24 07:18] LABS: ALBUMIN 4.2 g/dL (3.5-5.0); ALBUMIN/GLOBULIN RATIO 0.9 (0.8-2.0); ANION GAP 16.7 mmol/L (8-16); CALCIUM 10.3 mg/dL (8.4-10.2); CREATININE, SERUM 1.48 mg/dL (0.57-1.11); POTASSIUM 3.7 mmol/L (3.5-5.1)
[2018-09-24 07:50] LABS: BILIRUBIN,URINE NEGATIVE (NEGATIVE); CLARITY,URINE CLEAR (CLEAR); COLOR,URINE YELLOW (YELLOW); KETONES,URINE NEGATIVE (NEGATIVE); LEUKOCYTE ESTERASE ,URINE NEGATIVE (NEGATIVE); NITRITE,URINE NEGATIVE (NEGATIVE); PROTEIN,URINE DIPSTICK NEGATIVE (NEGATIVE); URINE UROBILINOGEN 0.2 mg/dL (0.2 - 1)
[2018-09-24 07:53] LABS: BACTERIA,URINE MODERATE /HPF; EPITHELIAL CELLS,URINE MODERATE /LPF
[2018-09-24 07:55] LABS: CREATINE KINASE MB 0.4 ng/mL (0-5.0)
[2018-09-24] MEDS ORDERED: DIATRIZOATE MEGL/DIATRIZOA SOD 30 ML BTL PO ONE (08:15)
--- NOTE | 2018-09-24 10:24 | NUR ---
VERBAL REPORT GIVEN TO DAVEY HERRERA.
--- NOTE | 2018-09-24 10:59 | Diagnostic Imaging Report ---
EXAM: CT Abdomen and Pelvis WITHOUT contrast INDICATION: Abdominal pain COMPARISON: CT abdomen/pelvis, 03/18/2013 (no images available, report only) TECHNIQUE: Abdomen and pelvis were scanned utilizing a multidetector helical scanner from the lung base to the pubic symphysis without administration of IV contrast. Absence of intravenous contrast decreases sensitivity for detection of focal lesions and vascular pathology. Coronal and sagittal reformations were obtained. Routine protocol was performed. Dose modulation, iterative reconstruction, and/or weight based adjustment of the mA/kV was utilized to reduce the radiation dose to as low as reasonably achievable. IV CONTRAST: None. ORAL CONTRAST: 25 cc Gastrografin [facility] DOSE: Total DLP: 738.12 mGy*cm Estimated effective dose: (DLP x 0.015 x size factor) mSv COMPLICATIONS: None FINDINGS: LINES and TUBES: None. LOWER THORAX: Nonspecific 5 mm nodule in the lingula (series 2, image 2) and at the left lung base (image 15). No consolidation or pleural effusion. Heart size normal. HEPATOBILIARY: No focal hepatic lesions. No biliary ductal dilation. GALLBLADDER: Surgical absence of the gallbladder with cholecystectomy clips. SPLEEN: No splenomegaly. There are calcified granulomata in the spleen. PANCREAS: No focal masses or ductal dilatation. ADRENALS: No adrenal nodules KIDNEYS/URETERS: No hydronephrosis. No cystic or solid mass lesions. No stones. GI TRACT: No abnormal distention or evidence of bowel obstruction. There are scattered sigmoid diverticula with no CT evidence for acute diverticulitis. The appendix is normal diameter and contains air with no surrounding inflammatory change. Again noted is mild haustral prominence in the cecum and proximal ascending colon with very mild adjacent fat stranding. PELVIC ORGANS/BLADDER: Urinary bladder unremarkable. Uterus is surgically absent by history. No discrete abnormal mass or fluid collection in the pelvis. LYMPH NODES: No dominant lymph node mass is seen in the abdomen, retroperitoneum or pelvis. VESSELS: Unenhanced abdominal aorta and IVC unremarkable. There are scattered calcified aortic plaques with no aneurysm. Incidentally noted is retroaortic course of the left renal vein. PERITONEUM / RETROPERITONEUM: No pneumoperitoneum or ascites. BONES: No acute or suspicious bony lesions. There is degenerative change with disc space narrowing at L3-4 and L4-5. SOFT TISSUES: Superficial surrounding soft tissue unremarkable. IMPRESSION: 1. Mild wall thickening with haustral prominence in the cecum and proximal ascending colon with very mild adjacent fat stranding. Finding is similar to description of the previous exam. This finding is nonspecific and may be accentuated by lack of distention, but may also reflect inflammatory or infectious colitis. 2. No other CT evidence for acute abdominal or pelvic pathology. 3. Small nonspecific pulmonary nodules. Consider 6 month follow-up noncontrast chest CT to evaluate stability. Staff: Yael Signed by: Dr. Erwin Conley M.D. on 09/24/2018 10:56 AM
[2018-09-24 11:26] VITALS: BP 121/72
== END 2018-09-24 11:44 | disposition home or self-care (01) ==
LOC: ER 05:52
DX: R10.32 Left lower quadrant pain (principal); R10.12 Left upper quadrant pain; R11.0 Nausea; Z87.11 Personal history of peptic ulcer disease
CPT/HCPCS: 36415; 74176; 80053; 81001; 82150; 82550; 82553; 83690; 84484; 85025; 93005; 96374; 96375; 99284; J2405; J7030

== ENCOUNTER 2019-04-02 07:39 | Emergency (ER) | payer OTHER ==
[~2019-04-02] VITALS: Ht 162.6 cm; Wt 76.2 kg
[2019-04-02] MEDS ORDERED: CLINDAMYCIN PHOS 600 MG/ 4 ML VIAL IM ONE (08:00)
== END 2019-04-02 09:10 | disposition home or self-care (01) ==
LOC: ER 07:39
DX: K04.7 Periapical abscess without sinus (principal); K02.9 Dental caries, unspecified
CPT/HCPCS: 99282